=== PATIENT | male | born 1955 | race Caucasian/White ===

== ENCOUNTER 2022-08-18 07:03 | Emergency (ER) | payer BC, SELFPAY ==
--- NOTE | 2022-08-18 07:07 | ED_ITS ---
HPI - General Adult General Time Seen by Provider: 07:07 Date Seen: 08/18/22 Chief complaint: Extremity Pain/Injury, Upper Stated complaint: Fell on ice injured RT elbow and ribs Time Seen by Provider: 08/18/22 07:06 Source: patient and RN notes reviewed Mode of arrival: ambulatory Limitations: no limitations History of Present Illness HPI narrative: 66-year-old male who comes in today with elbow and chest pain after fall. Patient fell 2 days ago landing on his right arm, also little bit of right chest wall pain, but rolled over in bed this morning had increased pain in the right side of the chest. Pain is worse with breathing. No shortness of breath. Patient has a history of atrial fibrillation is on Xarelto, also takes metoprolol. Related Data Allergies Allergy/AdvReac Type Severity Reaction Status Date / Time morphine Allergy Unknown Verified 08/18/22 07:12 amoxicillin [From Augmentin] Allergy Verified 08/18/22 07:12 clavulanic acid Allergy Verified 08/18/22 07:12 [From Augmentin] Review of Systems Status of ROS: Reports: 10 or more systems reviewed and unremarkable except as noted in History and below [facility] Medical History (Updated 08/18/22 @ 07:53 by Jaden Alvarez MD) Biceps tendon tear Hernia History of pulmonary embolism History of vasculitis Surgical History (Updated 12/18/21 @ 15:47 by Kaykay Nolasco) History of hip replacement History of vasectomy Family History (Updated 12/18/21 @ 15:49 by Kaykay Nolasco) Mother Breast cancer Family/Other Colorectal cancer Uncle Leukemia Family/Other Diabetes Social History (Updated 12/18/21 @ 15:51 by Kaykay Nolasco) 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: , 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 Alcohol Use: No Recreational Drug Use: No Smoking Status: Never smoker Do you use any of these nicotine containing products: None Second hand tobacco smoke exposure: Yes How often do you have a drink containing alcohol: monthly or less How many standard drinks containing alcohol do you have on a typical day: 1 or 2 How often do you have six or more drinks on one occasion: Less than monthly AUDIT-C Alcohol total score: 2 Non-prescribed substance use: denies use service: No Exam Narrative: Exam Narrative: General: Well-developed and well-nourished, no acute distress Head: Atraumatic and normocephalic Eyes: Pupils are equal reactive, extraocular motions intact, conjunctiva clear ENT: External nose and ears are normal, posterior pharynx without erythema or exudate Neck: No midline cervical tenderness, full spontaneous range of motion the neck, trachea midline, no adenopathy Heart: Regular rate and rhythm no murmurs or thrills Chest: Point tenderness of the right anterior inferior chest wall, no bruising Lungs: Clear to auscultation bilaterally without wheezes or crackles Abdomen: Soft, nontender, nondistended with active bowel sounds Musculoskeletal: Mild swelling of the distal posterior upper arm, full spontaneous range of motion the elbow Neurologic: Awake, alert, and oriented x3, no gross focal neurologic deficits, cranial nerves intact as tested Psych: Mood and affect are appropriate Skin: No rashes Const: Vital Signs, click to edit/add: Vital Signs - 24 hr 08/18/22 07:13 Temperature 95 F L Pulse Rate [Pulse Oximeter] 66 Respiratory Rate 20 Blood Pressure [Le ft Upper Arm] 129/90 H Pulse Oximetry 98 Oxygen Delivery Me thod Room Air Course Course Hospital Course: Patient seen examined, prior records reviewed. Patient presents on the ice, landing on his right side. Complaining of elbow pain and rib pain. Full range of motion of the elbow and minimal swelling, likelihood of fracture is low. Point tenderness of the ribs on the right, x-rays are ordered. Reevaluation(s) Reevaluation #1: Xrays independently reviewed by me do not show any acute displaced fractures, no pneumothorax or hemothorax. Patient stable for discharge. Time: 07:51 Vital Signs Vital signs: Initial Vital Signs Temperature 95 F L 08/18/22 07:13 Temperature Source Temporal Artery Scan 08/18/22 07:13 Pulse Rate 66 08/18/22 07:13 Pulse Rhythm 08/18/22 07:13 Respiratory Rate 20 08/18/22 07:13 Blood Pressure 129/90 H 08/18/22 07:13 Blood Pressure Mean 103 08/18/22 07:13 Blood Pressure Position Sitting 08/18/22 07:13 Pulse Oximetry 98 08/18/22 07:13 Oxygen Delivery Method 08/18/22 07:13 Vital Signs Temperature 95 F L 08/18/22 07:13 Pulse Rate 66 08/18/22 07:13 Respiratory Rate 20 08/18/22 07:13 Blood Pressure 129/90 H 08/18/22 07:13 Pulse Oximetry 98 08/18/22 07:13 Oxygen Delivery Method 08/18/22 07:13 Temperature 95 F L 08/18/22 07:13 Pulse Rate 66 08/18/22 07:13 Respiratory Rate 20 08/18/22 07:13 Blood Pressure 129/90 H 08/18/22 07:13 Pulse Oximetry 98 08/18/22 07:13 Oxygen Delivery Method 08/18/22 07:13 Medical Decision Making Medical Records Medical records reviewed: Yes I reviewed the patient's medical records Lab Data Lab results reviewed: Yes I reviewed the patient's lab results Discharge Plan Discharge Clinical Impression: Chest wall contusion, Contusion of elbow, right, Closed rib fracture Patient Disposition: Home, Self-Care Condition: Stable Instructions: Rib Fracture (ED), Contusion in Adults (ED), Rib Contusion (ED) Additional Instructions: Continue Tylenol and ibuprofen as needed for pain. Activity Level: Activity as Tolerated Follow Up/Referrals: Ben Apodaca MD [Primary Care Provider] - Stand Alone Forms: [facility]
[2022-08-18 07:13] VITALS: BP 129/90; PULSE 66; RESP 20; TEMP 35; O2SAT 98; BMI 44.1
--- NOTE | 2022-08-18 07:13 | CRLHL7_ITS ---
For Patients: As a result of the Cures Act, medical imaging exams and procedure reports are released immediately into your electronic medical record. You may view this report before your referring provider. If you have questions, please contact your health care provider. Indication: Injury with pain Technique: Two images of the right rib cage were acquired. A BB amaral the area pain Comparison: None Findings: Questionable nondisplaced right 9th rib fracture Impression: Questionable nondisplaced right 9th rib fracture Dictated by Josh Roldan MD @ 08/18/2022 7:51:33 AM (Electronically Signed)
== END 2022-08-18 08:11 | disposition home or self-care (01) ==
PROVIDERS: Emergency Provider Family Medicine; PCP Surgery
DX: R07.89 Other chest pain (principal); S50.01XA Contusion of right elbow, initial encounter; S22.31XA Fracture of one rib, right side, initial encounter for closed fracture; W19.XXXA Unspecified fall, initial encounter
CPT/HCPCS: 71101; 99283; 99284

== ENCOUNTER 2023-06-09 07:09 | Outpatient (CLI) | payer BC, SELFPAY ==
--- NOTE | 2023-06-09 08:33 | W.ANESCHARGE ---
Anesthesia Charges Start Date/Time Anesthesia Start Date: 06/09/23 Anesthesia Start Time: 08:03 Stop Date/Time Anesthesia Stop Date: 06/09/23 Anesthesia Stop Time: 08:31
--- NOTE | 2023-06-09 11:50 | W.ANESCHARGE ---
Anesthesia Charges Start Date/Time Anesthesia Start Date: 06/09/23 Anesthesia Start Time: 08:03 Stop Date/Time Anesthesia Stop Date: 06/09/23 Anesthesia Stop Time: 08:31
== END 2023-06-09 07:10 | disposition home or self-care (01) ==
LOC: OP CLINIC 07:10
PROVIDERS: PCP Surgery; Visit Provider Internal Medicine Gastroenterology
DX: Z12.11 Encounter for screening for malignant neoplasm of colon (principal); K63.5 Polyp of colon; K57.30 Diverticulosis of large intestine without perforation or abscess without bleeding; Z86.010 Personal history of colon polyps
CPT/HCPCS: 00811; 45380; 45385; 88305; J2704

== ENCOUNTER 2024-09-27 16:45 | Outpatient (RCR) | payer BC, SELFPAY | END 2024-11-19 09:23 | disposition home or self-care (01) | PROVIDERS: PCP Surgery; Visit Provider Surgery | DX: M25.571 Pain in right ankle and joints of right foot (principal); G89.29 Other chronic pain; Z51.89 Encounter for other specified aftercare | CPT/HCPCS: 97110; 97140; 97161 ==